=== PATIENT | female | born 1955 | race Hispanic/Latino ===

== ENCOUNTER → 2019-09-05 08:54 | Outpatient (CLI) | payer OTHER, SELFPAY ==
[2019-09-05 09:29] LABS: Add Manual Diff / Slide Review NO; Basophils Absolute Auto 0 /uL (0-100); Basophils Percent Auto 0.4 % (0-2); Eosinophils Absolute Auto 100 /uL (0-450); Eosinophils Percent Auto 1.4 % (2-4); Hematocrit 38.5 % (36-46); Hemoglobin 12.9 g/dL (12.0-16.0); Lymphocytes Absolute Auto 1800 /uL (1100-4500); Lymphocytes Percent Auto 27.6 % (25-40); Mean Corpuscular HGB Conc 33.6 % (30-36); Mean Corpuscular Hemoglobin 30.8 PG (26-34); Mean Corpuscular Volume 91.5 fL (80-100); Monocytes Absolute Auto 300 /uL (0-900); Monocytes Percent Auto 5.4 % (3-14); Neutrophils Absolute Auto 4200 /uL (1500-7000); Neutrophils Percent Auto 65.2 % (50-75); Platelet Count 326 X10^3/uL (150-400); Red Cell Distribution Width 12.1 % (11.6-14.8); White Blood Cell Count 6.4 X10^3/uL (4.5-11.0)
[2019-09-05 09:40] LABS: Hemoglobin A1C% w Est Avg Glu 6.7 % (4.0-6.0)
[2019-09-05 09:51] LABS: Alanine Aminotransferase 25 IU/L (<35); Albumin 4.2 g/dL (3.5-5.0); Albumin Globulin Ratio 1.3 (1.0-2.8); Alkaline Phosphatase 143 U/L (38-126); Amylase 39 U/L (30-110); Aspartate Aminotransferase 26 IU/L (14-36); BUN Creatinine Ratio 21.7 (6-22); Bilirubin Total 0.4 mg/dL (0.2-1.3); Blood Urea Nitrogen 13 mg/dL (7-17); Calcium 9.6 mg/dL (8.4-10.2); Carbon Dioxide 30 mmol/L (22-32); Chloride 102 mmol/L (98-107); Cholesterol 139 mg/dL (140-199); Estimated Glomerular Filt Rate > 60.0 mL/min (>60); Globulin 3.2 g/dL (1.7-4.1); Glucose 136 mg/dL (80-110); HDL Cholesterol 33 mg/dL (40-60); HEMOLYSIS < 15 (0-50); LDL Cholesterol Calculated 81 mg/dL (<100); Lipase 106 U/L (23-300); Potassium 3.9 mmol/L (3.4-5.1); Sodium 139 mmol/L (137-145); Total Protein 7.4 g/dL (6.3-8.2); Triglycerides 127 mg/dL (35-150)
[2019-09-05 09:57] LABS: Microalbumin Urine Random 4.4 mg/dL (0-1.6)
[2019-09-05 10:22] LABS: Thyroid Stimulating Hormone 1.69 uIU/mL (0.47-4.68)
== END ==
PROVIDERS: Visit Provider Family Medicine
DX: E11.9 Type 2 diabetes mellitus without complications (principal); E78.5 Hyperlipidemia, unspecified; R10.13 Epigastric pain
CPT/HCPCS: 36415; 80053; 80061; 82043; 82150; 82570; 83036; 83690; 84443; 85025

== ENCOUNTER → 2022-06-06 10:34 | Outpatient (CLI) | payer OTHER, SELFPAY ==
--- NOTE | 2022-06-06 10:36 | DI.RAD.S_ITS ---
PROCEDURE: FL JOINT INJECTION LARGE LT INDICATIONS: Superior glenoid labrum lesion of left shoulder COMPARISON: None. TECHNIQUE: The indications, alternatives, benefits, risks, and complications of the procedure were explained to the patient. Written informed consent was obtained and placed in the chart. The patient was placed in an appropriate position on the fluoroscopy table, and a site was chosen for percutaneous access under fluoroscopic guidance. The site was prepped and draped in a sterile fashion. Local anesthetic was administered using a 1% lidocaine solution. A hypodermic or spinal needle was then used to access the symptomatic joint. Intra-articular location of the needle tip was confirmed by injecting a small amount of contrast, followed by steroid administration. The needle was then withdrawn, and a bandage applied to the puncture site. FINDINGS: Joint injected: Left shoulder Medications injected: 4 mL of 40 mg/mL Kenalog and 0.5% Ropivacaine mixture. Complications: None. IMPRESSION: Successful fluoroscopically guided administration of steroid and anaesthetic solution into the left shoulder joint. Dictated by: Becky Felipe M.D. on 06/06/2022 at 11:52 Approved by: Becky Felipe M.D. on 06/06/2022 at 11:53
== END ==
PROVIDERS: PCP Internal Medicine; Referring Provider Physician Assistant Surgical; Visit Provider Physician Assistant Surgical
DX: S43.432A Superior glenoid labrum lesion of left shoulder, initial encounter (principal)
CPT/HCPCS: 20610

== ENCOUNTER → 2024-06-04 09:32 | Outpatient (CLI) | payer OTHER, SELFPAY ==
[2024-06-04 10:57] LABS: Alanine Aminotransferase 25 IU/L (<35); Albumin 4.1 g/dL (3.5-5.0); Albumin Globulin Ratio 1.3 (1.0-2.8); Alkaline Phosphatase 110 U/L (38-126); Aspartate Aminotransferase 27 IU/L (14-36); BUN Creatinine Ratio 21.8 (6-22); Bilirubin Total 0.5 mg/dL (0.2-1.3); Blood Urea Nitrogen 12 mg/dL (7-17); Calcium 9.3 mg/dL (8.4-10.2); Carbon Dioxide 29 mmol/L (22-32); Chloride 104 mmol/L (98-107); Cholesterol 156 mg/dL (140-199); Estimated Glomerular Filt Rate > 60 mL/min (>60); Globulin 3.1 g/dL (1.7-4.1); Glucose 140 mg/dL (80-110); HDL Cholesterol 42 mg/dL (40-60); HEMOLYSIS < 15 (0-50); Potassium 4.2 mmol/L (3.4-5.1); Total Protein 7.2 g/dL (6.3-8.2)
[2024-06-04 11:38] LABS: Hemoglobin A1C% w Est Avg Glu 6.7 % (4.0-6.0)
[2024-06-04 11:41] LABS: Sodium 139 mmol/L (137-145)
[2024-06-04 11:58] LABS: LDL Cholesterol Calculated 87 mg/dL (<100); Triglycerides 135 mg/dL (35-150)
[2024-06-04 12:40] LABS: Creatinine Urine Random 157.46 mg/dL
[2024-06-04 12:47] LABS: Protein (Total) Urine Random < 5 mg/dL (0-12); Protein Creatinine Ratio Urine 0.03 GRAM/24H
== END ==
PROVIDERS: PCP Family Medicine; Referring Provider Family Medicine; Visit Provider Family Medicine
DX: E11.9 Type 2 diabetes mellitus without complications (principal); E78.5 Hyperlipidemia, unspecified
CPT/HCPCS: 36415; 80053; 80061; 82570; 83036; 84156

== ENCOUNTER → 2024-06-26 08:07 | Outpatient (CLI) | payer OTHER, SELFPAY ==
--- NOTE | 2024-06-26 08:08 | DI.US.S_ITS ---
PROCEDURE: US THYROID INDICATIONS: POSTERIOR CERVICAL LYMPHADENOPATHY TECHNIQUE: Real-time scanning was performed of the thyroid gland, with image documentation. COMPARISON: None. FINDINGS: Thyroid: Right lobe measures 5.8 x 1.6 x 2.3 cm. Left lobe measures 5.0 x 1.3 x 1.3 cm. Isthmus is 0.3 cm thick. Echotexture is homogeneous. Nodule number: 1 Location: Right inferior Size: 2.2 x 1.4 x 1.5 cm Composition: Solid Echogenicity: Predominantly isoechoic Shape: wider than tall. Margins: Smooth Echogenic foci: None Total points: 3 ACR TI-RADS category: Mildly suspicious IMPRESSION: 1. Mildly suspicious 2.2 cm right thyroid nodule. Recommend follow-up ultrasound in 1 year based on guidelines provided below. 2. No significantly enlarged cervical lymph nodes identified. ACR TI-RADS definitions and recommendations: TI-RADS 1 (benign): 0 points. FNA not needed. TI-RADS 2 (not suspicious): 2 points. FNA not needed. TI-RADS 3 (mildly suspicious): 3 points. * FNA if 2.5 cm or larger, follow up if 1.5 cm or larger (at 1, 3, and 5 years). TI-RADS 4 (moderately suspicious): 4-6 points. * FNA if 1.5 cm or larger, follow up if 1 cm or larger (at 1, 2, 3, and 5 years). TI-RADS 5 (highly suspicious): 7 points or more. * FNA if 1 cm or larger, follow up if 0.5 cm or larger (every year for 5 years). Approved by: Dennis Mendoza M.D. on 06/26/2024 at 16:01
--- NOTE | 2024-06-26 08:08 | DI.MG.S_ITS ---
BILATERAL DIGITAL SCREENING MAMMOGRAM 3D/2D WITH CAD: 06/26/2024 CLINICAL: Routine screening. Family history of breast cancer. Comparison is made to exams dated: 06/29/2023 mammogram, 06/13/2022 mammogram, and 06/18/2021 mammogram - [facility]. There are scattered areas of fibroglandular density (category b / 25%-50% glandular tissue). Current study was also evaluated with a Computer Aided Detection (CAD) system. No significant masses, calcifications, or other findings are seen in either breast. There has been no significant interval change. IMPRESSION: NEGATIVE There is no mammographic evidence of malignancy. A 1 year screening mammogram is recommended. Based on the Tyrer Cuzick model (a risk assessment model) the patient's lifetime risk is 10.6% and her 10 year risk is 6.7%. According to the ACR, ACS, and NCCN guidelines, an annual breast MRI exam along with mammogram is recommended if the patient's lifetime risk is 20% or greater. This exam was interpreted at Station ID: [id number]. NOTE: For mammograms, a report in lay terms will be sent to the patient. Approximately 15% of breast malignancies will not be visualized mammographically. In the management of a palpable breast mass, a negative mammogram must not discourage biopsy of a clinically suspicious lesion. Electronically Signed By: Gayatri sanches/pedro pablo:06/27/2024 11:58:07 letter sent: Normal Exam ACR BI-RADS Category 1: Negative
== END ==
PROVIDERS: PCP Family Medicine; Referring Provider Family Medicine; Visit Provider Family Medicine
DX: Z12.31 Encounter for screening mammogram for malignant neoplasm of breast (principal); Z80.3 Family history of malignant neoplasm of breast; E04.1 Nontoxic single thyroid nodule; R59.0 Localized enlarged lymph nodes; E78.5 Hyperlipidemia, unspecified; E11.9 Type 2 diabetes mellitus without complications
CPT/HCPCS: 76536; 77063; 77067

== ENCOUNTER → 2024-07-17 12:00 | Outpatient (CLI) | payer OTHER, SELFPAY ==
--- NOTE | 2024-07-17 12:01 | DI.US.S_ITS ---
PROCEDURE: US SOFT TISSUE HEAD AND NECK INDICATIONS: posterior neck lymph node enlarged TECHNIQUE: Real-time scanning was performed of the neck region of interest, with image documentation. Color Doppler was also utilized. COMPARISON: None. FINDINGS: At the site of clinical concern, there is a normal-sized lymph node seen measuring 0.3 cm AP, with a normal fatty hilum. No abnormal cortical thickening can be seen. Additional nonenlarged lymph nodes can be seen elsewhere within the neck, without suspicious features. IMPRESSION: No enlarged lymph nodes are seen. Dictated by: Jaron Franks M.D. on 07/17/2024 at 13:23 Approved by: Jaron Franks M.D. on 07/17/2024 at 13:23
== END ==
PROVIDERS: PCP Family Medicine; Referring Provider Family Medicine; Visit Provider Family Medicine
DX: R59.0 Localized enlarged lymph nodes (principal)
CPT/HCPCS: 76536

== ENCOUNTER → 2025-06-18 10:17 | Outpatient (CLI) | payer OTHER, SELFPAY ==
[2025-06-18 10:57] LABS: Hemoglobin A1C% w Est Avg Glu 6.9 % (4.0-6.0)
[2025-06-18 11:15] LABS: Alanine Aminotransferase 28 IU/L (<35); Albumin 4.6 g/dL (3.5-5.0); Albumin Globulin Ratio 1.4 (1.0-2.8); Alkaline Phosphatase 110 U/L (38-126); Blood Urea Nitrogen 13 mg/dL (7-17); Calcium 9.6 mg/dL (8.4-10.2); Carbon Dioxide 27 mmol/L (22-32); Chloride 104 mmol/L (98-107); Cholesterol 152 mg/dL (140-199); Estimated Glomerular Filt Rate > 60 mL/min (>60); Globulin 3.3 g/dL (1.7-4.1); Glucose 124 mg/dL (70-99); HDL Cholesterol 38 mg/dL (40-60); HEMOLYSIS < 15 (0-50); Potassium 4.5 mmol/L (3.4-5.1); Sodium 141 mmol/L (137-145); Total Protein 7.9 g/dL (6.3-8.2); Triglycerides 155 mg/dL (35-150)
[2025-06-18 11:15] LABS: Microalbumi Creatinin Ratio Ur 8.0 ug/mg CR (<30)
== END ==
PROVIDERS: PCP Family Medicine; Referring Provider Family Medicine; Visit Provider Family Medicine
DX: E11.9 Type 2 diabetes mellitus without complications (principal); I10 Essential (primary) hypertension
CPT/HCPCS: 36415; 80053; 80061; 82043; 82570; 83036

== ENCOUNTER → 2025-07-02 11:12 | Outpatient (CLI) | payer OTHER, SELFPAY ==
--- NOTE | 2025-07-02 11:15 | DI.MG.S_ITS ---
MM screening mammo BI: 07/02/2025. BI-RADS: 1 CLINICAL: 70-year old female for bilateral screening mammogram. Tyrer-Cuzick lifetime risk of 12.3%. Current reported family history of breast cancer: sister, maternal aunt and maternal aunt's daughter. PRIOR EXAMS 06/26/2024, 06/29/2023, 06/13/2022, 06/18/2021. MAMMOGRAPHY TECHNIQUE: 2D and 3D (tomosynthesis) digital mammographic views obtained, with additional images as needed for full coverage. Current study was also evaluated with a Computer Aided Detection (CAD) system. DENSITY C. The breasts are heterogeneously dense, which may obscure small masses. MAMMOGRAPHY FINDINGS Bilateral: No suspicious mass, asymmetry, microcalcification, or other abnormality seen. IMPRESSION: * No evidence of malignancy. RECOMMENDATIONS Bilateral * Annual screening mammography. OVERALL ASSESSMENT CATEGORY BI-RADS-1: Negative. The [employer] recommends annual screening mammography beginning at age 40 for women with average risk of breast cancer. ELECTRONICALLY SIGNED: Yuli Ortiz M.D. on 07/02/2025 at 06:11:51 PM PT Interpreting Station ID: [id number]
--- NOTE | 2025-07-02 11:15 | DI.US.S_ITS ---
PROCEDURE: US THYROID INDICATIONS: mildly suspicious 2.2cm R thyroid nodule TECHNIQUE: Real-time scanning was performed of the thyroid gland, with image documentation. COMPARISON: [facility], [place], US THYROID, 06/26/2024, 8:45. FINDINGS: Thyroid: Right lobe measures 5.3 x 1.7 x 2.0 cm. Left lobe measures 4.0 x 1.4 x 1.5 cm. Isthmus is 0.5 cm thick. Echotexture is heterogeneous. Nodule number: 1 Location: Right inferior pole Size: 1.9 x 1.6 x 1.5 cm. Previously 2.2 x 1.4 x 1.5 cm. Composition: Solid with tiny fluid pockets. Echogenicity: Mostly isoechoic. Shape: wider than tall. Margins: Smooth Echogenic foci: None Total points: 3 ACR TI-RADS category: 3 IMPRESSION: Slight interval decrease in size of the dominant right inferior pole nodule. TI- RADS 3. This does not meet size criteria for biopsy. Continued surveillance in 2026 and 2028, per consensus guidelines. ACR TI-RADS definitions and recommendations: TI-RADS 1 (benign): 0 points. FNA not needed. TI-RADS 2 (not suspicious): 2 points. FNA not needed. TI-RADS 3: 3 points. * FNA if 2.5 cm or larger, follow up if 1.5 cm or larger (at 1, 3, and 5 years). TI-RADS 4: 4-6 points. * FNA if 1.5 cm or larger, follow up if 1 cm or larger (at 1, 2, 3, and 5 years). TI-RADS 5: 7 points or more. * FNA if 1 cm or larger, follow up if 0.5 cm or larger (every year for 5 years). Dictated by: Molina Singh M.D. on 07/02/2025 at 17:45 Approved by: Molina Singh M.D. on 07/02/2025 at 17:48
== END ==
LOC: MAMMO 11:13
PROVIDERS: PCP Family Medicine; Referring Provider Family Medicine; Visit Provider Family Medicine
DX: Z12.31 Encounter for screening mammogram for malignant neoplasm of breast (principal); E04.1 Nontoxic single thyroid nodule
CPT/HCPCS: 76536; 77063; 77067

== ENCOUNTER → 2025-08-13 08:08 | Outpatient (CLI) | payer OTHER, SELFPAY ==
[2025-08-13 08:38] LABS: Hemoglobin A1C% w Est Avg Glu 7.0 % (4.0-6.0)
== END ==
PROVIDERS: PCP Family Medicine; Referring Provider Family Medicine; Visit Provider Family Medicine
DX: E11.9 Type 2 diabetes mellitus without complications (principal)
CPT/HCPCS: 36415; 83036